=== PATIENT | female | born 1975 | race Caucasian/White ===

== ENCOUNTER 2021-03-10 11:54 | Day surgery (SDC) | payer OTHER ==
[~2021-03-10] VITALS: Ht 157.5 cm; Wt 82.9 kg
[2021-03-10] MEDS ORDERED: ASPI81TA14 PO (12:39)
[2021-03-10] MEDS ORDERED: PANT40TA3 PO (12:39)
[2021-03-10] MEDS ORDERED: PRAS10TA4 PO (12:39)
[2021-03-10 12:41] VITALS: BP 123/85
[2021-03-10] MEDS ORDERED: SODIUM CHLORIDE 0.9% 1,000 ML IV SCH (13:00)
[2021-03-10] MEDS ORDERED: FENTANYL PF 100 MCG/2ML ONE (13:25)
[2021-03-10] MEDS ORDERED: FLUMAZENIL 0.1 MG/1 ML, 5ML ONE (13:26)
[2021-03-10] MEDS ORDERED: MIDAZOLAM 1 MG/ML, 5ML ONE (13:26)
[2021-03-10] MEDS ORDERED: NALOXONE 1 MG/ML, 2ML ONE (13:26)
== END 2021-03-10 16:30 | disposition home or self-care (01) ==
LOC: OUT 11:54 → EDSTATUS 13:00 → OUT 16:30
PROVIDERS: ATTEND Internal Medicine Gastroenterology
DX: K71.8 Toxic liver disease with other disorders of liver (principal); K76.0 Fatty (change of) liver, not elsewhere classified; I25.2 Old myocardial infarction; Z79.82 Long term (current) use of aspirin; Z79.899 Other long term (current) drug therapy; Z86.711 Personal history of pulmonary embolism; Z87.891 Personal history of nicotine dependence; Z95.5 Presence of coronary angioplasty implant and graft
CPT/HCPCS: 37200; 75970; 76937; 88307; 88313; 99156; 99157; C1751; C1769; C1894; J2250; J3010; J7030; J2310

== ENCOUNTER → 2021-04-01 | Outpatient (CLI) | payer OTHER ==
[~2021-04-01] MED LIST: ASPI81TA14 PO; PANT40TA3 PO; PRAS10TA4 PO
[2021-04-01 12:26] LABS: BASOPHILS % (AUTO) 1 % (0-1); EOSINOPHILS % (AUTO) 2 % (1-7); LYMPHOCYTES % (AUTO) 48 % (22-44); MEAN CORPUSCULAR HEMOGLOBIN 34.2 pg (27.0-34.8); MEAN CORPUSCULAR HGB CONC 34.8 g/dL (32.4-35.8); MONOCYTES % (AUTO) 9 % (2-9); NEUTROPHILS % (AUTO) 39 % (42-75); PLATELET COUNT 245 x10^3/uL (130-400); RED BLOOD COUNT 4.05 x10^6/uL (3.82-5.3); RED CELL DISTRIBUTION WIDTH 14.1 % (9.6-15.2)
[2021-04-01 12:36] LABS: ALANINE AMINOTRANSFERASE 34 U/L (12-78); ALBUMIN 3.2 g/dL (3.4-5.0); ANION GAP 6 mmol/L (5-15); CALCIUM 8.6 mg/dL (8.5-10.1); CHLORIDE 109 mmol/L (98-107); CREATININE 0.79 mg/dL (0.55-1.02)
[2021-04-01 12:39] LABS: ALKALINE PHOSPHATASE 70 U/L (45-117); BILIRUBIN,TOTAL 0.3 mg/dL (0.2-1.0); CHOLESTEROL, TOTAL 198 mg/dL (140-239); HDL CHOL % 25 % (28-40); HDL CHOLESTEROL (DIRECT) 49 mg/dL (40-60); LDL CHOLESTEROL,CALCULATED 133 mg/dL (54-169); LDL/HDL RATIO 2.7 (0.5-3.0); TRIGLYCERIDES 81 mg/dL (50-200); VLDL CHOLESTEROL 16 mg/dL (0-25)
[2021-04-01 12:40] LABS: BILIRUBIN, DIRECT < 0.1 mg/dL (0.1-0.2); BILIRUBIN,INDIRECT 0.2 mg/dL (0.0-2.0)
== END | disposition home or self-care (01) ==
LOC: LAB 12:00
PROVIDERS: ATTEND Obstetrics & Gynecology
DX: K75.4 Autoimmune hepatitis (principal)
CPT/HCPCS: 36415; 80061; 80069; 80076; 82140; 82784; 82785; 83036; 83735; 84075; 84080; 84311; 85025; 86235